=== PATIENT | male | born 1980 | race African-American/Black ===

== ENCOUNTER 2021-04-20 14:12 | Emergency (ER) | payer OTHER ==
[2021-04-20 14:53] VITALS: BMI 29.6
[2021-04-20] MEDS ORDERED: KETOROLAC TROMETHAMINE 15 MG/ML VIAL IVPUSH ONE (15:03)
[2021-04-20] MEDS ORDERED: LABETALOL HCL 5 MG/1 ML (100MG/20 ML VIAL) IVPUSH ONE ×3 (15:07→17:07)
[2021-04-20 16:29] VITALS: TEMP 98.1
[2021-04-20] MEDS ORDERED: LOSARTAN POTASSIUM 50 MG TABLET PO ONE (17:10)
[2021-04-20 17:23] VITALS: PULSE 79
[2021-04-20 17:36] VITALS: BP 169/109
[2021-04-23 22:31] LABS: HIV INTERPRETATION NEGATIVE (NEGATIVE)
== END 2021-04-20 18:08 | disposition home or self-care (01) ==
LOC: FER 14:12
PROC: 3E0333Z Introduction of Anti-inflammatory into Peripheral Vein, Percutaneous Approach (ICD-10-PCS; principal; 2021-04-20)
PROC: 3E033GC Introduction of Other Therapeutic Substance into Peripheral Vein, Percutaneous Approach (ICD-10-PCS; 2021-04-20)
PROC: 3E033GC Introduction of Other Therapeutic Substance into Peripheral Vein, Percutaneous Approach (ICD-10-PCS; 2021-04-20)
PROC: 3E033GC Introduction of Other Therapeutic Substance into Peripheral Vein, Percutaneous Approach (ICD-10-PCS; 2021-04-20)
DX: N45.1 Epididymitis (principal); I10 Essential (primary) hypertension
CPT/HCPCS: 36415; 81003; 87086; 87389; 87491; 87591; 99284-25